=== PATIENT | female | born 1965 | race Caucasian/White ===

== ENCOUNTER 2018-12-05 05:16 | Inpatient (IN) | payer OTHER ==
[~2018-12-05] VITALS: Ht 154.9 cm; Wt 98.4 kg
[~2018-12-05 05:16] MED LIST: DIUREX MAX50 MG PO; MULTI-VITAMIN1 EACH PO; SYNTHROID100 MCG PO; VENTOLIN HFA18 GM INH
--- OUTSIDE RECORDS SUMMARY | 2018-12-05 05:19 | XMS REPORT | Clinical Summary ---
Author Author ADRIAN [facility] Address Unknown Phone Unavailable Care Team Providers Care Restaurant Attendant Name Role Phone PCP Unavailable Allergies Comments Active Allergy Reactions Severity Noted Date Morpholine Analogues Nausea And 11/04/2018 Vomiting Penicillins Itching 11/04/2018 Medications End Date Status Medication Sig Dispensed Refills Start Date Active levothyroxine (SYNTHROID, Take 100 mcg 0 LEVOTHROID) 100 MCG by mouth tablet Every morning on an empty stomach. Active albuterol Take 2.5 mg 0 (PROVENTIL,VENTOLIN) 5 by mg/mL nebulizer solution nebulization every 6 (six) hours as needed for Wheezing. Active multivitamin per tablet Take 1 tablet 0 by mouth daily. Active Problems No known active problems Encounters Care Team Description Date Type Specialty Helga Monsalve NP 11/15/2018 Outside Orders Helga Monsalve NP Preoperative clearance (Primary Dx); Dyspnea on exertion 11/04/2018 Office Visit Cardiology after 12/04/2017 Family History Medical History Relation Name Comments Diabetes Father Heart disease Father Hypertension Father Diabetes Mother Hypertension Mother Relation Name Status Comments Father Mother Social History Date Tobacco Use Types Packs/Day Years Used Never Smoker Smokeless Tobacco: Never Used Alcohol Use Drinks/Week oz/Week Comments Yes 1 Glasses of 0.6 wine Sex Assigned at Date Recorded Not on file Industry Job Start Date Occupation Not on file Not on file Not on file Travel End Travel History Travel Start No recent travel history available. Last Filed Vital Signs Time Taken Vital Sign Reading 11/04/2018 9:34 AM SENIOR QUALITY ASSURANCE ENGINEER Blood Pressure 135/75 11/04/2018 9:34 AM SENIOR QUALITY ASSURANCE ENGINEER Pulse 81 - Temperature - - Respiratory Rate - 11/04/2018 9:34 AM SENIOR QUALITY ASSURANCE ENGINEER Oxygen Saturation 96% - Inhaled Oxygen - Concentration 11/04/2018 9:34 AM SENIOR QUALITY ASSURANCE ENGINEER Weight 102.1 kg (225 lb) 11/04/2018 9:34 AM SENIOR QUALITY ASSURANCE ENGINEER Height 154.9 cm (5' 1") 11/04/2018 9:34 AM SENIOR QUALITY ASSURANCE ENGINEER Body Mass Index 42.51 Plan of Treatment Care Team Description Date Type Specialty Marycruz Whitlock MD ([place]) [address] [facility] [address] [place] [address] [phone] 01/10/2019 Office Visit Cardiology Procedures Comments Procedure Name Priority Date/Time Associated Diagnosis ECG 12-LEAD Routine 11/07/2018 Dyspnea on exertion 3:45 PM SENIOR QUALITY ASSURANCE ENGINEER after 12/04/2017 Results * ECG 12 lead (11/07/2018 3:45 PM SENIOR QUALITY ASSURANCE ENGINEER) Narrative Performed At after 12/04/2017 Insurance Payer Benefit Subscriber ID Type Phone Address Plan / Group xxxxxxxxx Other Govt PRIME (, H[place], [facility], etc.)
--- OUTSIDE RECORDS SUMMARY | 2018-12-05 05:19 | XMS REPORT ---
Author Author Naima Huggins [facility] eClinicalWorks Address Unknown Phone Unavailable Care Team Providers Care Inspector Filters Name Role Phone Naima Huggins CP Unavailable Allergies No Known Allergies Problems Problem Type Condition Code Onset Dates Condition Status Problem Acquired hypothyroidism E03.9 Active Problem Other and unspecified hyperlipidemia E78.5 Active Problem PVCs (premature ventricular contractions) I49.3 Active Problem Body mass index (BMI) of 40.0-44.9 in adult Z68.41 Active Problem Elevated BP without diagnosis of hypertension R03.0 Active Problem Morbid (severe) obesity due to excess calories E66.01 Active Problem IGT (impaired glucose tolerance) R73.02 Active Problem Mild intermittent asthma, unspecified whether complicated J45.20 Active Problem Rosacea L71.9 Active Medications No Known Medications Results No Known Results Summary Purpose eClinicalWorks Submission
--- OUTSIDE RECORDS SUMMARY | 2018-12-05 05:19 | XMS REPORT ---
Author Author Christi Lawson Organization eClinicalWorks Address Unknown Phone Unavailable Care Team Providers Care Terra Cotta Mason Name Role Phone Christi Lawson CP Unavailable Allergies No Known Allergies Problems Problem Type Condition Code Onset Dates Condition Status Problem Acquired hypothyroidism E03.9 Active Problem Other and unspecified hyperlipidemia E78.5 Active Problem IGT (impaired glucose tolerance) R73.02 Active Assessment Acute UTI N39.0 Active Medications Medication Code System Code Instructions Start Date End Date Status Dosage Macrobid [facility] 70965501164 macrocrystals-monohydrate 100 mg orally 2 times a day Jun 18, 2017 Active 1 cap(s) Bactrim DS ND 23108532248 800 mg-160 mg orally 2 times a day Jun 15, 2017 Inactive 1 tab(s) Results No Known Results Summary Purpose eClinicalWorks Submission
--- OUTSIDE RECORDS SUMMARY | 2018-12-05 05:19 | XMS REPORT ---
Author Author Jamie Chao [facility] eClinicalWorks Address Unknown Phone Unavailable Care Team Providers Care Compound Worker Name Role Phone Jamie Chao CP Unavailable Allergies No Known Allergies Problems Problem Type Condition Code Onset Dates Condition Status Problem Acquired hypothyroidism E03.9 Active Problem Other and unspecified hyperlipidemia E78.5 Active Problem IGT (impaired glucose tolerance) R73.02 Active Medications Medication Code System Code Instructions Start Date End Date Status Dosage Ventolin HFA [facility] [address]-49 CFC free 90 mcg/inh inhaled every 6hr PRN February 03, 2010 Active 2 puff(s) Results No Known Results Summary Purpose eClinicalWorks Submission
--- OUTSIDE RECORDS SUMMARY | 2018-12-05 05:19 | XMS REPORT ---
Author Author Christi Lawson Organization eClinicalWorks Address Unknown Phone Unavailable Care Team Providers Care Nut Former Name Role Phone Christi Lawson CP Unavailable Allergies No Known Allergies Problems Problem Type Condition Code Onset Dates Condition Status Problem Acquired hypothyroidism E03.9 Active Problem Other and unspecified hyperlipidemia E78.5 Active Problem IGT (impaired glucose tolerance) R73.02 Active Medications No Known Medications Results No Known Results Summary Purpose eClinicalWorks Submission
--- OUTSIDE RECORDS SUMMARY | 2018-12-05 05:19 | XMS REPORT | Continuity of Care Document ---
Author Author Blossom ruby [facility] Address Unknown Phone Unavailable Problems Problem Status Onset Date Classification Date Reported Comments Source Acquired hypothyroidism Active Problem 11/30/2018 [facility] Other and unspecified hyperlipidemia Active Problem 11/30/2018 [facility] IGT Active Problem 11/30/2018 [facility] PVCs Active Problem 11/30/2018 [facility] Body mass index of 40.0-44.9 in adult Active Problem 11/30/2018 [facility] Elevated BP without diagnosis of hypertension Active Problem 11/30/2018 [facility] Morbid obesity due to excess calories Active Problem 11/30/2018 [facility] Mild intermittent asthma, unspecified whether complicated Active Problem 11/30/2018 [facility] Rosacea Active Problem 11/30/2018 [facility] Acute UTI Active Diagnosis 06/30/2017 [facility] Encounter for screening Active Diagnosis 06/30/2017 [facility] Encntr for general adult medical exam w/o abnormal findings Active Diagnosis 07/21/2018 [facility] Need for vaccination with 13-polyvalent pneumococcal conjugate vaccine Active Diagnosis 07/21/2018 [facility] Screen for colon cancer Active Diagnosis 07/21/2018 [facility] Screening for breast cancer Active Diagnosis 07/21/2018 [facility] Vision changes Active Diagnosis 07/21/2018 [facility] Pre-op evaluation Active Diagnosis 11/17/2018 [facility] Medications Medication Details Route Status Patient Instructions Ordering Provider Order Date Source Synthroid 1 tab(s) orally Active 75 mcg (0.075 mg) orally once a day Joseluis 07/08/2018 [facility] Synthroid 1 tab(s) orally Active 50 mcg (0.05 mg) orally once a day Joseluis 05/19/2018 [facility] Macrobid 1 cap(s) orally Active macrocrystals-monohydrate 100 mg orally 2 times a day Joseluis 06/18/2017 [facility] Bactrim DS 1 tab(s) orally Active 800 mg-160 mg orally 2 times a day [place] 06/15/2017 [facility] Bactrim DS 1 tab(s) orally Active 800 mg-160 mg orally 2 times a day [place] 07/25/2014 [facility] Diflucan 1 tab(s) orally Active 150 mg orally QOD [place] 07/17/2014 [facility] triamcinolone topical 1 linda applied topically Active 0.1% applied topically 3 times a day [place] 07/17/2014 [facility] econazole topical 1 linda applied topically Active 1% applied topically 2 times a day [place] 07/17/2014 [facility] levothyroxine 1 tab(s) orally Active 75 mcg (0.075 mg) orally once a day [place] 11/06/2011 [facility] Ventolin HFA 2 puff(s) inhaled Active CFC free 90 mcg/inh inhaled every 6hr PRN [facility] 02/03/2010 [facility] Ventolin HFA 2 puff(s) inhaled Active CFC free 90 mcg/inh inhaled every 6hr PRN [place] 02/03/2010 [facility] Singulair 1 tab(s) orally Active 10 mg orally once a day (in the evening) [facility] metronidazole topical 1 linda applied topically Active 0.75% applied topically 2 times a day [facility] Synthroid 1 tab(s) orally Active 100 mcg (0.1 mg) orally once a day [facility] Synthroid 1 tab(s) orally Active 75 mcg (0.075 mg) orally once a day [facility] Allergies, Adverse Reactions, Alerts Substance Category Reaction Severity Reaction type Status Date Reported Comments Source PCN Adverse Reaction sensitive Adverse Reaction Active 05/12/2018 [facility] morphine Adverse Reaction vomiting Adverse Reaction Active 11/15/2018 [facility] penicillin Adverse Reaction throat itching Adverse Reaction Active 11/15/2018 [facility] Immunizations Immunization Date Given Site Status Last Updated Comments Source PREVNAR 13 (nurse) 05/12/2018 completed [facility] Results Order Name Results Value Reference Range Date Interpretation Comments Source Vital Signs Vital Sign Value Date Comments Source Height 61.5 11/15/2018 [facility] Weight 226 11/15/2018 [facility] Temperature Oral (F) 97.2 F 11/15/2018 [facility] Diastolic (mm Hg) 80 11/15/2018 [facility] Systolic (mm Hg) 132 11/15/2018 [facility] Height 61.5 05/12/2018 [facility] Weight 239 05/12/2018 [facility] Temperature Oral (F) 97.9 F 05/12/2018 [facility] Diastolic (mm Hg) 80 05/12/2018 [facility] Systolic (mm Hg) 130 05/12/2018 [facility] Height 61.5 06/15/2017 [facility] Weight 247 06/15/2017 [facility] Temperature Oral (F) 98.0 F 06/15/2017 [facility] Diastolic (mm Hg) 86 06/15/2017 [facility] Systolic (mm Hg) 136 06/15/2017 [facility] Encounters Location Location Details Encounter Type Encounter Number Reason For Visit Attending Provider ADM Date DC Date Status Source Procedures Procedure Code Date Perfomer Comments Source
--- OUTSIDE RECORDS SUMMARY | 2018-12-05 05:19 | XMS REPORT ---
Author Christi Parra [facility] eClinicalWorks Address Unknown Phone Unavailable Care Team Providers Care Freight Rate Clerk Name Role Phone Christi Lawson CP Unavailable Allergies, Adverse Reactions, Alerts Substance Reaction Event Type PCN sensitive Non Drug Allergy Problems Problem Type Condition Code Onset Dates Condition Status Problem Acquired hypothyroidism E03.9 Active Problem Other and unspecified hyperlipidemia E78.5 Active Problem IGT (impaired glucose tolerance) R73.02 Active Assessment Acute UTI N39.0 Active Assessment Encounter for screening Z13.9 Active Medications Medication Code System Code Instructions Start Date End Date Status Dosage Ventolin HFA [facility] [id number] CFC free 90 mcg/inh inhaled every 6hr PRN February 03, 2010 Active 2 puff(s) Bactrim DS [facility] 54516755692 800 mg-160 mg orally 2 times a day Jul 25, 2014 Active 1 tab(s) Diflucan ND 45818894323 150 mg orally QOD Jul 17, 2014 Active 1 tab(s) Bactrim DS [facility] 69038213624 800 mg-160 mg orally 2 times a day Jun 15, 2017 Active 1 tab(s) Singulair [facility] [address]-75 10 mg orally once a day (in the evening) Active 1 tab(s) triamcinolone topical [facility] 35723572148 0.1% applied topically 3 times a day Jul 17, 2014 Active 1 linda econazole topical ND 34680248919 1% applied topically 2 times a day Jul 17, 2014 Active 1 linda Ventolin HFA [facility] [address]-13 CFC free 90 mcg/inh inhaled Q 6-8 H PRN February 03, 2010 Active 2 puff(s) levothyroxine [facility] [address]-42 75 mcg (0.075 mg) orally once a day Nov 06, 2011 Active 1 tab(s) Vital Signs Date/Time: Jun 15, 2017 Height 61.5 in Weight 247 lbs Temperature 98.0 F BMI 45.91 Index Blood Pressure Diastolic 86 mm Hg Blood Pressure Systolic 136 mm Hg Results No Known Results Summary Purpose eClinicalWorks Submission
--- OUTSIDE RECORDS SUMMARY | 2018-12-05 05:20 | XMS REPORT ---
Author Author Jamie Chao [facility] eClinicalWorks Address Unknown Phone Unavailable Care Team Providers Care Administrative Services Director Name Role Phone Jamie Chao CP Unavailable Allergies No Known Allergies Problems Problem Type Condition Code Onset Dates Condition Status Problem Morbid (severe) obesity due to excess calories E66.01 Active Problem Body mass index (BMI) of 40.0-44.9 in adult Z68.41 Active Problem Rosacea L71.9 Active Problem Other and unspecified hyperlipidemia E78.5 Active Problem IGT (impaired glucose tolerance) R73.02 Active Problem Acquired hypothyroidism E03.9 Active Medications No Known Medications Results No Known Results Summary Purpose eClinicalWorks Submission
--- OUTSIDE RECORDS SUMMARY | 2018-12-05 05:20 | XMS REPORT ---
Author Author Naima Huggins [facility] eClinicalWorks Address Unknown Phone Unavailable Care Team Providers Care Edi Programmer Analyst Name Role Phone Naima Huggins CP Unavailable Allergies, Adverse Reactions, Alerts Substance Reaction Event Type morphine vomiting Drug Allergy penicillin throat itching Drug Allergy Problems Problem Type Condition Code [...] complicated J45.20 Active Problem Rosacea L71.9 Active Assessment Body mass index (BMI) of 40.0-44.9 in adult Z68.41 Active Assessment IGT (impaired glucose tolerance) R73.02 Active Assessment Other and unspecified hyperlipidemia E78.5 Active Assessment Morbid (severe) obesity due to excess calories E66.01 Active Assessment Acquired hypothyroidism E03.9 Active Assessment Mild intermittent asthma, unspecified whether complicated J45.20 Active Assessment Pre-op evaluation Z01.818 Active Medications Medication Code System Code Instructions Start Date End Date Status Dosage Synthroid NDC 25311928043 75 mcg (0.075 mg) orally once a day Active 1 tab(s) Ventolin HFA NDC 99257752869 CFC free 90 mcg/inh inhaled every 6hr PRN February 03, 2010 Active 2 puff(s) Synthroid NDC 76946966861 100 mcg (0.1 mg) orally once a day Active 1 tab(s) Vital Signs Date/Time: November 15, 2018 Height 61.5 in Weight 226 lbs Temperature 97.2 F BMI 42.01 Index Blood Pressure Diastolic 80 mm Hg Blood Pressure Systolic 132 mm Hg Results No Known Results Summary Purpose eClinicalWorks Submission
--- OUTSIDE RECORDS SUMMARY | 2018-12-05 05:20 | XMS REPORT ---
Author Author Naima Huggins [facility] eClinicalWorks Address Unknown Phone Unavailable Care Team Providers Care Glass Calibrator Name Role Phone Naima Huggins Unavailable Allergies No Known Allergies Problems Problem Type Condition Code Onset Dates Condition Status Problem Acquired hypothyroidism E03.9 Active Problem Other and unspecified hyperlipidemia E78.5 Active Assessment Acquired hypothyroidism E03.9 Active Problem PVCs (premature ventricular contractions) I49.3 Active Problem Body mass index (BMI) of 40.0-44.9 in adult Z68.41 Active Problem Elevated BP without diagnosis of hypertension R03.0 Active Problem Morbid (severe) obesity due to excess calories E66.01 Active Problem IGT (impaired glucose tolerance) R73.02 Active Problem Mild intermittent asthma, unspecified whether complicated J45.20 Active Problem Rosacea L71.9 Active Medications Medication Code System Code Instructions Start Date End Date Status Dosage Synthroid CAC 76230958078 100 mcg (0.1 mg) orally once a day Active 1 tab(s) Results No Known Results Summary Purpose eClinicalWorks Submission
--- OUTSIDE RECORDS SUMMARY | 2018-12-05 05:20 | XMS REPORT ---
Author Author Naima Huggins [facility] eClinicalWorks Address Unknown Phone Unavailable Care Team Providers Care Belt Cutter Name Role Phone Naima Huggins Unavailable Allergies No Known Allergies Problems Problem Type Condition Code Onset Dates Condition Status Problem Morbid (severe) obesity due to excess calories E66.01 Active Problem Body mass index (BMI) of 40.0-44.9 in adult Z68.41 Active Problem Rosacea L71.9 Active Problem Other and unspecified hyperlipidemia E78.5 Active Assessment Acquired hypothyroidism E03.9 Active Problem IGT (impaired glucose tolerance) R73.02 Active Problem Acquired hypothyroidism E03.9 Active Medications No Known Medications Results No Known Results Summary Purpose eClinicalWorks Submission
--- OUTSIDE RECORDS SUMMARY | 2018-12-05 05:20 | XMS REPORT ---
Author Author Naima Huggins [facility] eClinicalWorks Address Unknown Phone Unavailable Care Team Providers Care Fretted Instrument Maker Hand Name Role Phone Naima Huggins Unavailable Allergies [...] Active Problem Acquired hypothyroidism E03.9 Active Medications Medication Code System Code Instructions Start Date End Date Status Dosage Synthroid [facility] 19960527919 50 mcg (0.05 mg) orally once a day May 19, 2018 Active 1 tab(s) Results No Known Results Summary Purpose eClinicalWorks Submission
--- OUTSIDE RECORDS SUMMARY | 2018-12-05 05:20 | XMS REPORT ---
Author Author Naima Huggins [facility] eClinicalWorks Address Unknown Phone Unavailable Care Team Providers Care Odd Bundle Worker Name Role Phone Naima Huggins Unavailable Allergies, Adverse Reactions, Alerts Substance Reaction Event Type PCN sensitive Non Drug Allergy Problems Problem Type Condition Code Onset Dates Condition Status Assessment Other and unspecified hyperlipidemia E78.5 Active Assessment Encntr for general adult medical exam w/o abnormal findings Z00.00 Active Problem Morbid (severe) obesity due to excess calories E66.01 Active Problem Body mass index (BMI) of 40.0-44.9 in adult Z68.41 Active Problem Rosacea L71.9 Active Problem Acquired hypothyroidism E03.9 Active Problem Other and unspecified hyperlipidemia E78.5 Active Problem Mild intermittent asthma, unspecified whether complicated J45.20 Active Problem IGT (impaired glucose tolerance) R73.02 Active Assessment Need for vaccination with 13-polyvalent pneumococcal conjugate vaccine Z23 Active Assessment Rosacea L71.9 Active Assessment Screen for colon cancer Z12.11 Active Assessment Screening for breast cancer Z12.31 Active Assessment Vision changes H53.9 Active Assessment Mild intermittent asthma, unspecified whether complicated J45.20 Active Assessment Body mass index (BMI) of 40.0-44.9 in adult Z68.41 Active Assessment IGT (impaired glucose tolerance) R73.02 Active Assessment Morbid (severe) obesity due to excess calories E66.01 Active Assessment Acquired hypothyroidism E03.9 Active Medications Medication Code System Code Instructions Start Date End Date Status Dosage Ventolin HFA ND 74829206862 CFC free 90 mcg/inh inhaled every 6hr PRN February 03, 2010 Active 2 puff(s) metronidazole topical NDC 81098182897 0.75% applied topically 2 times a day Active 1 linda Macrobid ND 58017157161 macrocrystals-monohydrate 100 mg orally 2 times a day Jun 18, 2017 Active 1 cap(s) Vital Signs Date/Time: May 12, 2018 Height 61.5 in Weight 239 lbs Temperature 97.9 F BMI 44.42 Index Blood Pressure Diastolic 80 mm Hg Blood Pressure Systolic 130 mm Hg Results No Known Results Immunizations Vaccine Administration Date PREVNAR 13 (nurse) May 12, 2018 Summary Purpose eClinicalWorks Submission
--- OUTSIDE RECORDS SUMMARY | 2018-12-05 05:20 | XMS REPORT ---
Author Author Naima Huggins [facility] eClinicalWorks Address Unknown Phone Unavailable Care Team Providers Care Flow Trader Name Role Phone Naima Huggins Unavailable Allergies [...] Date End Date Status Dosage Synthroid NDC 05196940010 50 mcg (0.05 mg) orally once a day May 19, 2018 Inactive 1 tab(s) Synthroid NDC 61141895029 75 mcg (0.075 mg) orally once a day Jul 08, 2018 Active 1 tab(s) Results No Known Results Summary Purpose eClinicalWorks Submission
--- OUTSIDE RECORDS SUMMARY | 2018-12-05 05:20 | XMS REPORT ---
Author Author Naima Huggins [facility] eClinicalWorks Address Unknown Phone Unavailable Care Team Providers Care Mat Cutter Name Role Phone Naima Huggins CP Unavailable [...]
--- OUTSIDE RECORDS SUMMARY | 2018-12-05 05:20 | XMS REPORT ---
Author Author Naima Huggins [facility] eClinicalWorks Address Unknown Phone Unavailable Care Team Providers Care Disbursing Officer Name Role Phone Naima Huggins Unavailable Allergies [...] Start Date End Date Status Dosage Synthroid MNC 03282578200 100 mcg (0.1 mg) orally once a day Active 1 tab(s) Results No Known Results Summary Purpose eClinicalWorks Submission
[2018-12-05] MEDS ORDERED: BUPIVACAINE 0.25% 30ML SDV INJ ONE (06:06)
[2018-12-05 06:36] LABS: BASOPHILS % 0.3 % (0.0-1.0); EOSINOPHILS # (AUTO) 0.1 (0.0-0.4); EOSINOPHILS % 1.3 % (0.0-6.0); HEMATOCRIT 45.2 % (34.2-44.1); LYMPHOCYTES # (AUTO) 3.8 (1.0-3.2); MEAN CORPUSCULAR HEMOGLOBIN 29.1 pg (28-32); MEAN CORPUSCULAR HGB CONC 33.2 g/dL (31-35); MEAN CORPUSCULAR VOLUME 87.8 fL (81-99); MONOCYTES # (AUTO) 0.6 (0.2-0.8); MONOCYTES % 6.3 % (4.4-11.3); NEUTROPHILS # (AUTO) 5.1 (2.1-6.9); NEUTROPHILS % 52.8 % (38.7-80.0); PLATELET COUNT 342 x10e3/uL (140-360); RED BLOOD COUNT 5.15 x10e6/uL (3.6-5.1); RED CELL DISTRIBUTION WIDTH 13.2 % (11.7-14.4)
[2018-12-05] MEDS ORDERED: ACETAMINOPHEN 1000 MG/100 ML 100 ML IV ONE (06:36)
[2018-12-05] MEDS ORDERED: SCOPOLAMINE 1.5 MG PATCH ONE (06:37)
[2018-12-05] MEDS ORDERED: SUGAMMADEX SODIUM 200 MG/2 ML VIAL IV ONE (06:37)
[2018-12-05] MEDS ORDERED: LIDOCAINE HCL (LTA) 4 ML SOLN ONE (06:37)
[2018-12-05] MEDS ORDERED: LEVOFLOXACIN 500MG/D5W 100ML 100 ML IV ONE (06:50)
--- NOTE | 2018-12-05 06:50 | Diagnostic Imaging Report ---
EXAMINATION: PA and lateral views of the chest. COMPARISON: None CLINICAL HISTORY: Preop protocol for morbid obesity DISCUSSION: Lines/tubes: None. Lungs: The lungs are well inflated and clear. There is no evidence of pneumonia or pulmonary edema. Pleura: There is no pleural effusion or pneumothorax. Heart and mediastinum: Cardiomediastinal silhouette is unremarkable. Pulmonary vasculature is normal. Bones and soft tissues: No acute bony abnormalities. IMPRESSION: No acute cardiopulmonary abnormalities. Signed by: Dr. Raf Donnelly M.D. on 12/05/2018 6:47 AM
[2018-12-05 07:01] LABS: ANION GAP 13.8 mmol/L (8-16); BLOOD UREA NITROGEN 15 mg/dL (7-26); BUN/CREATININE RATIO 23 (6-25); CALCIUM 9.6 mg/dL (8.4-10.2); CARBON DIOXIDE 25 mmol/L (22-29); CHLORIDE 102 mmol/L (98-107); CREATININE, SERUM 0.66 mg/dL (0.57-1.11); EST GLOMERULAR FILTRATION RATE > 60 ML/MIN (60-); GLUCOSE 97 mg/dL (74-118); POTASSIUM 3.8 mmol/L (3.5-5.1); SODIUM 137 mmol/L (136-145)
[2018-12-05] MEDS ORDERED: SCOPOLAMINE 1.5 MG PATCH TOP SCH (08:15)
[2018-12-05] MEDS ORDERED: MORPHINE SULFATE 2 MG/ML SYR 1ML IV PRN (08:15)
--- OUTSIDE RECORDS SUMMARY | 2018-12-05 08:31 | XMS REPORT ---
Author Author [facility] Address Unknown Phone Unavailable Care Team Providers Care Sales Enablement Consultant Name Role Phone Ishmael CHRISTINE Unavailable Unavailable Problems This patient has no known problems. Allergies, Adverse Reactions, Alerts This patient has no known allergies or adverse reactions. Medications This patient has no known medications. Results Test Description Test Time Test Comments Text Results Atomic Results Result Comments CHEST 2 VIEWS 2018-12-05 06:47:00 [place] [id number] Patient Name: NALDO GAITAN MR #: [id number] : 1965 Age/Sex: 53/F Req #: [id number] Adm Physician: Ordered by: MAISHA CHRISTINE MD Report #: [id number] Location: OR Room/Bed: Procedure: [id number] DX/CHEST 2 VIEWS Exam Date: 12/05/18 Exam Time: 0630 REPORT STATUS: Signed EXAMINATION: PA and lateral views of the chest. C OMPARISON: None CLINICAL HISTORY: Preop protocol for morbid obesity DISCUSSION: Lines/tubes: None. Lungs: The lungs are well inflated and clear. There is no evidence of pneumonia or pulmonary edema. Pleura: There is no pleural effusion or pneumothorax. Heart and mediastinum: Cardiomediastinal silhouette is unremarkable. Pulmonary vasculature is normal. Bones and soft tissues: No acute bony abnormalities. IMPRESSION: No acute cardiopulmonary abnormalities. Signed by: Dr. Fernando Donnelly M.D. on 12/05/2018 6:47 AM Dictated By: FERNANDO DONNELLY MD 6 Transcribed By: SERENE on 12/05/18646 COPY TO: MAISHA CHRISTINE MD
--- OUTSIDE RECORDS SUMMARY | 2018-12-05 08:31 | XMS REPORT | Clinical Summary ---
Author Author [facility] Address Unknown Phone Unavailable Care Team Providers Care Data Recovery Planner Name Role Phone PCP Unavailable Allergies Comments [...] Taken Vital Sign Reading 11/04/2018 9:34 AM CASE LINER Blood Pressure 135/75 11/04/2018 9:34 AM CASE LINER Pulse 81 - Temperature - - Respiratory Rate - 11/04/2018 9:34 AM CASE LINER Oxygen Saturation 96% - Inhaled Oxygen - Concentration 11/04/2018 9:34 AM CASE LINER Weight 102.1 kg (225 lb) 11/04/2018 9:34 AM CASE LINER Height 154.9 cm (5' 1") 11/04/2018 9:34 AM CASE LINER Body Mass Index 42.51 Plan of Treatment Care Team Description Date Type Specialty Marycruz Whitlock MD ([place]) [address] [facility] [address] [facility] [address] [place] [address] [phone] 01/10/2019 Office Visit Cardiology Procedures Comments Procedure Name Priority Date/Time Associated Diagnosis ECG 12-LEAD Routine 11/07/2018 Dyspnea on exertion 3:45 PM CASE LINER after 12/04/2017 Results * ECG 12 lead (11/07/2018 3:45 PM CASE LINER) Narrative Performed At after 12/04/2017 Insurance Payer Benefit Subscriber ID Type Phone Address Plan / Group xxxxxxxxx Other Govt [employer] (, HMO/POS [place], [facility], etc.)
[2018-12-05] MEDS ORDERED: KETOROLAC TROMETHAMINE 30 MG/ML VIAL ONE (08:41)
[2018-12-05] MEDS ORDERED: FENTANYL CITRATE/PF 100MCG/2 ML INJ ONE ×2 (08:55→19:43)
[2018-12-05] MEDS: MORPHINE SULFATE INJ 4 MG/ML INJ 1ML IV PRN ×2 (10:10→23:38)
[2018-12-05] MEDS: ONDANSETRON HCL INJ 2MG/ML 2ML 2 MG/ML VIAL IV PRN ×2 (10:11→23:38)
--- NOTE | 2018-12-05 10:11 | NUR ---
Received patient and alert and responsive, no resp distress, on O2 2L NC and, call light within reach and family member in room with patient. Medicated at this time for pain, bed in low locked position, trochar sites to abdomen with no drainage, patient NPO at this time, VSS and will monitor
[2018-12-05 11:00] VITALS: BP 165/75
[2018-12-05] MEDS: SODIUM CHLORIDE 0.9% 1000ML 1,000 ML IV SCH ×3 (11:00→20:43)
--- NOTE | 2018-12-05 11:27 | NUR ---
Patient OOB and ambulated in the room, to bathroom, some dizziness and assisted back to bed, will monitor
[2018-12-05 12:00] VITALS: BP 159/73
--- NOTE | 2018-12-05 13:37 | Operative Report ---
DATE OF PROCEDURE: 12/05/2018 SURGEON: Kwadwo Cárdenas MD PREOPERATIVE DIAGNOSES: 1. Morbid obesity, BMI 44. 2. Asthma. POSTOPERATIVE DIAGNOSES: 1. Morbid obesity, BMI 44. 2. Asthma. PREOPERATIVE INDICATION: Treat disease, prevent complications related to comorbid conditions of obesity. PROCEDURE: Laparoscopic vertical sleeve gastrectomy. ANESTHESIA: General. ORACLE IAM CONSULTANT: Misha certified surgical first assistant (needed due to complexity of case). FLUIDS: 600 mL of crystalloid. ESTIMATED BLOOD LOSS: 40 mL. DRAINS: None. COMPLICATIONS: None. SPECIMENS: Partial stomach. GRAFTS: None. FINDINGS: 1. Normal upper GI anatomy. 2. Negative intraoperative EGD leak test. PROCEDURE IN DETAIL: The patient was brought to the operating room and was intubated under general endotracheal anesthesia. She was sterilely prepped and draped in the usual fashion and preprocedure pause was performed identifying the patient, use of perioperative antibiotics, intended procedure and staff surgeon. Access was gained via a 5 mm left subcostal incision using a Veress needle. Insufflation ensued and 4 additional trocars were placed. Liver retractor was placed. The greater curvature of the stomach was mobilized using [place] LigaSure device from 4 cm proximal to the pyloric valve to the left tesfaye of the diaphragm and adult-sized endoscope was placed along the lesser curvature of the stomach. The greater curvature of the stomach was resected using multiple firings of an Endo [place] purple load 60 mm Covidien stapling device. A leak test was performed. No leaks were identified. The specimen was removed through the right periumbilical port site. Hemostasis was assured. Hemoclips were applied where necessary. The liver retractor was removed. The abdomen was desufflated and the trocars were removed. We used 30 mL of 0.25% Bupivacaine at both the preperitoneal incision sites. The large port site was closed with 0 Vicryl suture using the Jeremy-Miguel technique. The incision sites were closed with 4-0 Monocryl suture in a subcuticular fashion. Dermabond dressings were applied. The patient tolerated the procedure well. Type of wound is type 2, clean and contaminant. Kwadwo Cárdenas MD [facility] [place]/MODL /[id number]
--- NOTE | 2018-12-05 14:14 | NUR ---
Patient feeling much better and OOB and ambulated hallway, pains well managed, no adverse events, appears more alert and will monitor.
--- NOTE | 2018-12-05 15:32 | History and Physical ---
REASON FOR ADMISSION: Extreme obesity complicating underlying hypertension. HOSPITAL COURSE: This is a 53-year-old white woman, who was admitted to [facility] with diagnosis of extreme obesity complicating underlying hypertension. Today, the patient underwent successful laparoscopic sleeve gastrectomy that was performed by her bariatric surgeon whose name is Dr. Oliveira. The patient voices no complaints other than mild abdominal pain. The patient states she does have a history of asthma as well as hypothyroidism. The patient states she does not have history of hypertension, but both her parents are hypertensive and diabetic. REVIEW OF SYSTEMS: GENERAL: The patient states she has lost weight intentionally over the last few weeks. No fever or chills. HEENT: No headache. No vision changes. CARDIOVASCULAR/RESPIRATORY: No chest pain or shortness of breath. No cough. GI: No nausea, vomiting, diarrhea, or constipation. She does have mild abdominal pain. : Avitia catheter has been removed. She denies any UTI or overactive bladder symptoms. NEUROMUSCULAR: Denies any limb weakness or numbness. PAST MEDICAL HISTORY: 1. Hypothyroidism. 2. Extreme obesity. 3. Asthma. PAST FAMILY HISTORY: Both parents have hypertension and type 2 diabetes. ALLERGIES: 1. PENICILLIN. 2. MORPHINE. SOCIAL HISTORY: The patient is . 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 Does not smoke tobacco, but drinks alcohol socially. SURGICAL HISTORY: 1. Laparoscopic sleeve gastrectomy today. 2. section. 3. Partial hysterectomy. HOME MEDICATIONS: 1. Levothyroxine 100 mcg daily. 2. Pamabrom 50 mg at bedtime. 3. Multivitamin once daily. 4. Albuterol inhaler, 2 puffs q.i.d. as needed for shortness of breath or wheezing. PHYSICAL EXAMINATION: GENERAL: She is somnolent, but arousable. She is currently in a post anesthesia care unit. VITAL SIGNS: Height 5 feet 1 inch, weighs 216 pounds, BMI 41. Blood pressure is 177/78, pulse 62, oxygen saturation is 98% on 2 L oxygen. She is afebrile, respiratory rate is 16. INTEGUMENT: Skin is warm and dry. Slight pallor. No jaundice or diaphoresis. HEENT: Anterior sclerae. Moist mucous membranes. NECK: Supple. No evidence of jugular venous distention. CARDIOVASCULAR: Distant heart sounds. Regular rate and rhythm. LUNGS: No rales, no rhonchi or wheeze. ABDOMEN: Obese. The laparoscopic incision is currently dressed. No bowel sounds are appreciated at this time. EXTREMITIES: No edema or deformity. She has sequential compression devices on her bilateral lower legs. NEUROLOGIC: Intact. DIAGNOSES: 1. Status post laparoscopic sleeve gastrectomy. 2. Hypertension, likely. 3. Hypothyroidism. 4. Extreme obesity, BMI of 41, likely complicating underlying hypertension. PLAN: 1. Encourage incentive spirometer use to prevent atelectasis. 2. Mobilize the patient. 3. Enoxaparin for deep venous thrombosis prophylaxis. 4. Blood pressure monitoring. 5. Pain control. 6. We will follow electrolytes. I spent 40 minutes in the care of this patient. MD RUSSEL Casey/JORY /[id number] MTDD
[2018-12-05 16:33] VITALS: BP 134/77
--- NOTE | 2018-12-05 19:30 | NUR ---
pt received. pt assessed. no ss of distress noted. no co pain at time. x5 trocar sites to abd cdi. assisted pt up to bathroom and back to bed. will cont to follow poc. call trinidad within reach. Addendum: 12/06/18 at 0350 by Nelly Hays RN pt on specialty bed.
[2018-12-05] MEDS ORDERED: ROCURONIUM BROMIDE 10 MG/ML 5ML VIAL ONE (19:43)
[2018-12-05] MEDS ORDERED: LIDOCAINE HCL 2% JELLY 5 ML TUBE ONE (19:43)
[2018-12-05] MEDS ORDERED: SEVOFLURANE INHAL SOLN 250 ML PEN BTL ONE (19:43)
[2018-12-05] MEDS ORDERED: ONDANSETRON HCL INJ 2MG/ML 2ML 2 MG/ML VIAL ONE (19:43)
[2018-12-05] MEDS ORDERED: PROPOFOL IV EMULSION 10 MG/ML 20 ML VIAL ONE (19:43)
[2018-12-05] MEDS ORDERED: MIDAZOLAM HCL 2 MG/2 ML VIAL ONE (19:43)
[2018-12-05] MEDS ORDERED: DEXAMETHASONE SOD PHOS INJ 4 MG/ML VIAL ONE (19:43)
[2018-12-05] MEDS ORDERED: SUCCINYLCHOLINE 200 MG/10 ML SYR ONE (19:43)
[2018-12-05] MEDS ORDERED: LIDOCAINE HCL 2% LOCAL INJ 5 ML SDV VIAL INJ ONE (19:43)
[2018-12-05 20:00] VITALS: BP 165/77
--- NOTE | 2018-12-05 20:00 | NUR ---
OOB and ambulated hallway. gait steady. no distress noted. call trinidad within reach.
[2018-12-05] MEDS: ENOXAPARIN SOD INJ 40 MG/0.4 ML SYR SC SCH (20:48)
--- NOTE | 2018-12-05 21:00 | NUR ---
spoke to pharmacy in regards to morphine order and allergy. pharmacist stated note md aware and ok to give.
--- NOTE | 2018-12-05 23:25 | NUR ---
pt co pain to abd. discussed pain mngt poc. pt stated her reaction to morphine is nausea. will give nausea medication as well. call trinidad within reach.
[2018-12-06] VITALS: BP 171/78
[2018-12-06 04:00] VITALS: BP 167/73
--- NOTE | 2018-12-06 04:11 | NUR ---
assisted pt to bathroom and back to bed. no ss of distress noted. call trinidad within reach.
[2018-12-06] MEDS: SODIUM CHLORIDE 0.9% 1000ML 1,000 ML IV SCH (05:14)
[2018-12-06] MEDS: ONDANSETRON HCL INJ 2MG/ML 2ML 2 MG/ML VIAL IV PRN (06:12)
[2018-12-06] MEDS: MORPHINE SULFATE INJ 4 MG/ML INJ 1ML IV PRN (06:12)
[2018-12-06 06:31] LABS: BASOPHILS % 0.1 % (0.0-1.0); EOSINOPHILS % 0.1 % (0.0-6.0); HEMATOCRIT 42.3 % (34.2-44.1); LYMPHOCYTES # (AUTO) 3.5 (1.0-3.2); MEAN CORPUSCULAR HEMOGLOBIN 29.2 pg (28-32); MEAN CORPUSCULAR HGB CONC 33.1 g/dL (31-35); MEAN CORPUSCULAR VOLUME 88.1 fL (81-99); MONOCYTES # (AUTO) 1.2 (0.2-0.8); MONOCYTES % 6.6 % (4.4-11.3); NEUTROPHILS # (AUTO) 12.9 (2.1-6.9); NEUTROPHILS % 72.7 % (38.7-80.0); PLATELET COUNT 368 x10e3/uL (140-360); RED CELL DISTRIBUTION WIDTH 13.2 % (11.7-14.4)
[2018-12-06 06:48] LABS: ALANINE AMINOTRANSFERASE 19 IU/L (0-55); ALBUMIN 3.6 g/dL (3.5-5.0); ALBUMIN/GLOBULIN RATIO 1.1 (0.8-2.0); ALKALINE PHOSPHATASE 74 IU/L (40-150); ANION GAP 13.6 mmol/L (8-16); BLOOD UREA NITROGEN 5 mg/dL (7-26); BUN/CREATININE RATIO 9 (6-25); CALCIUM 8.6 mg/dL (8.4-10.2); CARBON DIOXIDE 21 mmol/L (22-29); CHLORIDE 106 mmol/L (98-107); CREATININE, SERUM 0.58 mg/dL (0.57-1.11); EST GLOMERULAR FILTRATION RATE > 60 ML/MIN (60-); GLUCOSE 93 mg/dL (74-118); MAGNESIUM 2.1 MG/DL (1.3-2.1); PHOSPHORUS 2.3 MG/DL (2.3-4.7); POTASSIUM 3.6 mmol/L (3.5-5.1); SODIUM 137 mmol/L (136-145)
[2018-12-06] MEDS ORDERED: HYDROCODONE/APAP 7.5MG-325MG 1 EA TAB PO PRN (07:15)
[2018-12-06 08:19] VITALS: BP 141/66
[2018-12-06] MEDS ORDERED: LEVOTHYROXINE SODIUM 100 MCG TAB PO SCH ×2 (08:27→09:00)
[2018-12-06] MEDS ORDERED: ALBUTEROL SULFATE HFA 8GM INHALATION AEROSOL INH SCH (08:30)
--- NOTE | 2018-12-06 08:32 | NUR ---
MD MCCORMICK INTO SEE PT, DISCUSSED POC
[2018-12-06] MEDS ORDERED: MULTIVITAMINS/MINERALS TAB PO SCH (09:00)
[2018-12-06] MEDS: ENOXAPARIN SOD INJ 40 MG/0.4 ML SYR SC SCH (09:40)
[2018-12-06 09:44] VITALS: BP 141/66
--- NOTE | 2018-12-06 10:38 | NUR ---
Nutrition Screen Note RD Recommendation for Physician: -Advance diet as tolerated -Follow up with outpatient bariatric clinic for further monitoring Plan of Care: RD following, monitoring for tolerance and adequacy, diet education Nutrition reason for involvement: MD Consult bariatric diet education Primary Diagnose(s): s/p laparoscopic sleeve gastrectomy PMH: HTN, obesity, asthma, hypothyroidism Ht: 61in Wt: 217lb BMI: 41kg/m2 IBW: 105lb RD Assessment: (12/06) Chart reviewed. Labs and meds reviewed. 53yo F, s/p successful laparoscopic sleeve gastrectomy on 12/05. Visited pt in the room. Pt tolerated clear liquid diet this AM. No GI complains noted. Pt denied any chewing or swallowing difficulty. Bariatric diet education was provided. All questions have been answered. Current Diet: bariatric clear liquid Malnutrition Evaluation (12/06) The patient does not meet criteria for a specified degree of malnutrition at this time. Will re-evaluate at follow-up as appropriate. Diet Education Needs Assessment: Diet education indicated, pt was agreeable with plan. Learner(s): pt Time spent: 20minutes Barriers: none Cultural/Language Modifications: No cultural/language modifications noted. Pt speaks Tajik. Readiness: acceptance Method: explanation/ discussion, handout Topics: Bariatric diet (clear liquid, full liquid, pureed) Understanding/Compliance: good compliance expected, needs reinforcement at outpatient bariatric clinic, all questions have been answered Nutrition Care Level: low Signed: Marcia Alvarado, MS, RD, LD
--- NOTE | 2018-12-06 10:45 | NUR ---
AMBULATING IN HALLWAY, STEADY GAIT, PCT AT SIDE
[2018-12-06 12:03] VITALS: BP 134/64
[2018-12-06] MEDS ORDERED: ZOFRAN4 MG PO (12:22)
[2018-12-06] MEDS ORDERED: TYLENOL WITH C1 EACH PO (12:22)
--- NOTE | 2018-12-06 12:57 | NUR ---
Progress note S: No complaints O: AF, VSS Gen- no distress Abd- soft, incisions healing well A/P: POD 1, s/p Lap sleeve gastrectomy -clears, ambulate, IS, OOB to chair, d/c home today -f/u in week -post op instructions given to patient Marifer Cárdenas MD
--- NOTE | 2018-12-06 13:31 | NUR ---
DISCHARGE INSTRUCTIONS REVIEWED, PT VERBALIZED UNDERSTANDING, AWAITING RIDE
--- NOTE | 2018-12-06 14:27 | NUR ---
WHEELED OFF UNIT VIA WC FOR DISCHARGE, NO CHANGE IN CONDITION
--- NOTE | 2018-12-07 10:18 | Discharge Summary ---
ADMIT DIAGNOSES: 1. Extreme obesity, BMI of 41, likely complicating underlying hypertension. 2. Hypertension, likely. 3. Hypothyroidism. DISCHARGE DIAGNOSES: 1. Status post laparoscopic sleeve gastrectomy. 2. Extreme obesity, BMI of 41, likely complicating underlying hypertension. 3. Hypertension, likely. 4. Hypothyroidism. HOSPITAL COURSE: This is a 53-year-old white woman, who was admitted to [facility] with diagnosis of extreme obesity, BMI of 41. The patient also was found to have elevated blood pressure readings during this hospitalization, and it was felt that perhaps she does have hypertension. The patient underwent successful laparoscopic sleeve gastrectomy during this hospitalization that was performed by her bariatric surgeon, Dr. Kwadwo Cárdenas. The patient's condition on discharge was stable. On discharge, she was tolerating a full liquid diet. On the day of discharge, the patient's BUN and creatinine was 5 and 0.58 respectively. The patient's potassium at discharge was 3.6. DISCHARGE MEDICATIONS: 1. Tylenol No. 3 one pill every 4 to 6 hours p.r.n. pain, #20 prescribed, no refills. 2. Zofran 4 mg one pill every 6 hours p.r.n. nausea and vomiting. 3. Levothyroxine 100 mcg daily. 4. Pamabrom 50 mg at bedtime. 5. Multivitamin daily. 6. Albuterol inhaler two puffs q.i.d. as needed for shortness of breath or wheezing. FOLLOWUP INSTRUCTIONS: The patient is instructed to follow up with Dr. Kwadwo Cárdenas in 1 week and with her primary care physician within 2 weeks. I informed the patient that she needs to have her blood pressure checked at her primary care physician's office. MD RUSSEL Casey/JORY /[id number] cc: Kwadwo Cárdenas MD
== END 2018-12-06 13:53 | disposition home or self-care (01) | DRG 621 ==
LOC: OR 05:16 → PACU V 08:24 → MED/SURG 09:39
PROVIDERS: ADMIT Internal Medicine; ATTEND Internal Medicine
PROC: 0DB64Z3 Excision of Stomach, Percutaneous Endoscopic Approach, Vertical (ICD-10-PCS; principal; 2018-12-05 09:00)
DX: E66.01 Morbid (severe) obesity due to excess calories (principal); Z68.41 Body mass index [BMI] 40.0-44.9, adult; I10 Essential (primary) hypertension; E03.9 Hypothyroidism, unspecified; J45.909 Unspecified asthma, uncomplicated
CPT/HCPCS: 36415; 71046; 80048; 80053; 82948; 83735; 84100; 85025; 86850; 86900; 93005; 96372; 96375; 96376; J1100; J1650; J1885; J1956; J2001; J2250; J2270; J2405; J7030